=== PATIENT | male | born 1950 | race Caucasian/White ===

== ENCOUNTER → 2016-12-24 | Outpatient (CLI) | payer OTHER ==
[~2016-12-24] MED LIST: ASPEC325 PO; ATV5 PO; DICLOFENAC PO; LISI-461 PO; MELO7.5T5 PO; MULT-506 PO
[2016-12-24 14:18] LABS: ALT/SGPT 110 U/L (12-78); AST/SGOT 47 U/L (15-37); BLOOD UREA NITROGEN 30 mg/dl (7-18); BUN/CREATININE RATIO 22.8 (10-20); CALCIUM 8.9 mg/dl (8.5-10.1); CARBON DIOXIDE 27 mmol/L (21-32); CHLORIDE 112 mmol/L (98-107); GLUCOSE 91 mg/dl (70-99); POTASSIUM 5.3 mmol/L (3.5-5.1); SODIUM 142 mmol/L (136-145)
[2016-12-24 14:29] LABS: ALKALINE PHOSPHATASE 66 U/L (45-117); CHOLESTEROL 205 mg/dl (0-200); CHOLESTEROL/HDL RATIO 4.6; HDL CHOLESTEROL 45 mg/dl; LDL CHOLESTEROL CALCULATED 146 mg/dl; PROSTATE SPECIFIC ANTIGEN 0.395 ng/ml (0.000-4.000); TRIGLYCERIDES 72 mg/dl (0-150); VERY LOW DENSITY LIPOPROT CALC 14 mg/dl
[2016-12-24 14:48] LABS: BASO % 0.4 %; BASO ABS # 0.02 K/uL (0-0.2); COMPLETE YES; EOS % 6.6 %; HEMATOCRIT 41.9 % (42-52); IG% 0.2 %; LYMPH % 34.5 %; LYMPH ABS # 1.83 K/uL (1.2-3.4); MEAN CELL VOLUME 94.6 fL (80-100); MEAN CORPUSCULAR HEMOGLOBIN 31.8 pg (25-34); MEAN CORPUSCULAR HGB CONC 33.7 g/dl (32-36); MONO % 8.3 %; PLATELET COUNT 117 K/uL (130-400); PLT ESTIMATE DECREASED; RED BLOOD COUNT 4.43 M/uL (4.7-6.1); WHITE BLOOD COUNT 5.31 K/uL (4.8-10.8)
--- NOTE | 2017-01-08 12:06 | CODING QUERY MEDICAL NECESSITY ---
CQSUPPORTING DIAGNOSIS NEEDED A supporting diagnosis is required for the test/procedure performed on this patient in order for us to be reimbursed by the patient's insurance. Please provide a supporting diagnosis for the following test/procedure listed below next to the test name along with your signature. *If there is no additional diagnosis for this patient that would support the following test/procedure please document that below next to the test/procedure. Test(s)/Procedure(s) that require a supporting diagnosis: DOS 12/24/16 PROSTATE SPECIFIC ANTIGEN THYROID TEST LIPID TEST Provider Signature: Date: Thank you Mitzy Ball [facility] Information Management Once completed, please kindly fax back to [phone] For questions please call [phone]
== END | disposition home or self-care (01) ==
LOC: C.LABBC 09:46
PROVIDERS: ATTEND Internal Medicine
DX: M19.90 Unspecified osteoarthritis, unspecified site (principal); M62.830 Muscle spasm of back; Z12.5 Encounter for screening for malignant neoplasm of prostate; F41.1 Generalized anxiety disorder; E78.5 Hyperlipidemia, unspecified

== ENCOUNTER → 2017-01-02 | Outpatient (CLI) | payer OTHER ==
--- NOTE | 2017-01-02 08:23 | DIAGNOSTIC IMAGING REPORT ---
ABDOMINAL ULTRASOUND, RIGHT UPPER QUADRANT HISTORY: Elevated liver function tests. COMPARISON: None. FINDINGS: Increased hepatic echogenicity is consistent with fatty infiltration. An area sparing within the gallbladder fossa is noted. There is a 5 mm left hepatic lobe cyst. There is no biliary ductal dilatation. The common bile duct measures 4 mm in caliber. The gallbladder is normal. No gallstones are identified. The pancreas is largely obscured by overlying bowel gas. There is no right hydronephrosis. IMPRESSION: 1. Fatty infiltration of the liver. 2. No gallstones or biliary ductal dilatation. 3. Largely obscured pancreas. Electronically signed by: Isrrael Almodovar M.D. 01/02/2017 8:22 AM Dictated Date/Time: 01/02/2017 8:20 AM
[2017-01-02 11:09] LABS: BASO % 0.4 %; BASO ABS # 0.02 K/uL (0-0.2); COMPLETE YES; EOS % 6.3 %; HEMATOCRIT 43.3 % (42-52); IG% 0.2 %; LYMPH % 28.9 %; LYMPH ABS # 1.46 K/uL (1.2-3.4); MEAN CELL VOLUME 94.3 fL (80-100); MEAN CORPUSCULAR HEMOGLOBIN 31.8 pg (25-34); MEAN CORPUSCULAR HGB CONC 33.7 g/dl (32-36); MEAN PLATELET VOLUME 11.6 fL (7.4-10.4); MONO % 10.3 %; NEUT % 53.9 %; PLATELET COUNT 113 K/uL (130-400); RED BLOOD COUNT 4.59 M/uL (4.7-6.1); WHITE BLOOD COUNT 5.05 K/uL (4.8-10.8)
[2017-01-02 11:42] LABS: ALT/SGPT 138 U/L (12-78); AST/SGOT 48 U/L (15-37); BLOOD UREA NITROGEN 26 mg/dl (7-18); BUN/CREATININE RATIO 20.3 (10-20); CALCIUM 8.6 mg/dl (8.5-10.1); CARBON DIOXIDE 26 mmol/L (21-32); CHLORIDE 108 mmol/L (98-107); GLUCOSE 108 mg/dl (70-99); POTASSIUM 5.5 mmol/L (3.5-5.1); SODIUM 137 mmol/L (136-145)
[2017-01-02 11:46] LABS: ALKALINE PHOSPHATASE 69 U/L (45-117); FERRITIN 77.4 ng/ml (8.0-388.0)
== END | disposition home or self-care (01) ==
LOC: C.ULTRBC 12-28 09:46
PROVIDERS: ATTEND Physician Assistant
DX: R94.5 Abnormal results of liver function studies (principal); K76.0 Fatty (change of) liver, not elsewhere classified

== ENCOUNTER → 2017-03-21 | Outpatient (CLI) | payer OTHER ==
[2017-03-21 10:57] LABS: BASO % 0.3 %; BASO ABS # 0.02 K/uL (0-0.2); COMPLETE YES; EOS % 4.2 %; HEMATOCRIT 42.5 % (42-52); IG% 0.2 %; LYMPH % 27.3 %; LYMPH ABS # 1.63 K/uL (1.2-3.4); MEAN CORPUSCULAR HEMOGLOBIN 31.6 pg (25-34); MEAN CORPUSCULAR HGB CONC 33.6 g/dl (32-36); MEAN PLATELET VOLUME 10.8 fL (7.4-10.4); MONO % 8.6 %; NEUT % 59.4 %; PLATELET COUNT 146 K/uL (130-400); RED BLOOD COUNT 4.52 M/uL (4.7-6.1); WHITE BLOOD COUNT 5.96 K/uL (4.8-10.8)
[2017-03-21 14:25] LABS: ALT/SGPT 67 U/L (12-78); AST/SGOT 46 U/L (15-37); BLOOD UREA NITROGEN 22 mg/dl (7-18); BUN/CREATININE RATIO 20.4 (10-20); CALCIUM 8.9 mg/dl (8.5-10.1); CARBON DIOXIDE 27 mmol/L (21-32); CHLORIDE 104 mmol/L (98-107); CHOLESTEROL 144 mg/dl (0-200); CREATININE 1.09 mg/dl (0.60-1.40); GLUCOSE 108 mg/dl (70-99); POTASSIUM 4.6 mmol/L (3.5-5.1); SODIUM 139 mmol/L (136-145); TRIGLYCERIDES 81 mg/dl (0-150); VERY LOW DENSITY LIPOPROT CALC 16 mg/dl
[2017-03-21 14:28] LABS: ALKALINE PHOSPHATASE 68 U/L (45-117); CHOLESTEROL/HDL RATIO 2.4; HDL CHOLESTEROL 59 mg/dl; LDL CHOLESTEROL CALCULATED 69 mg/dl
== END | disposition home or self-care (01) ==
LOC: C.LABBC 09:21
PROVIDERS: ATTEND Internal Medicine
DX: I10 Essential (primary) hypertension (principal); G47.33 Obstructive sleep apnea (adult) (pediatric); D69.6 Thrombocytopenia, unspecified; R79.89 Other specified abnormal findings of blood chemistry; E78.5 Hyperlipidemia, unspecified; K76.0 Fatty (change of) liver, not elsewhere classified

== ENCOUNTER 2017-07-16 04:58 | Emergency (ER) | payer OTHER ==
[~2017-07-16] VITALS: Ht 165.1 cm; Wt 111.8 kg
[2017-07-16 05:01] VITALS: TEMP 36.7; Ht 165.1 cm; Wt 111.8 kg
--- NOTE | 2017-07-16 05:33 | EMERGENCY ROOM VISIT NOTE ---
History Report prepared by [place]: Gena Durham Under the Supervision of: Dr. Brandi Zambrano D.O. First contact with patient: 05:06 Chief Complaint: SORETHROAT Stated Complaint: SORE THROAT History of Present Illness The patient is a 66 year old male who presents to the Emergency Room with complaints of a constant sore throat beginning 2 days ago. The patient states that he has been coughing up green sputum and has been congested the last 2 days. He states that he tried salt water and Mucinex, but that this did not alleviate his symptoms. He denies coughing up blood and difficulty swallowing. The patient also denies fevers, chills, headaches, nausea, vomiting, and diarrhea. He reports a history of a tonsillectomy. He states that he is traveling to [place] today. Source of History: patient Onset: 2 days ago Position: throat Quality: other (sore throat) Associated Symptoms: + cough, No fevers, No chills, No headache, No nausea, No vomiting, No diarrhea Review of Systems See HPI for pertinent positives & negatives. A total of 10 systems reviewed and were otherwise negative. Past Medical & Surgical Medical Problems: (1) Hypertension (2) Right Hip DJD Surgical Problems: (1) History of hip replacement (2) History of knee replacement (3) History of tonsillectomy Family History No pertinent family history Social History Smoking Status: Never Smoker Alcohol Use: occasionally Marital Status: Housing Status: lives alone Current/Historical Medications Scheduled Aspirin (Aspirin), 325 MG PO BID Azithromycin (Zithromax), 250 MG PO DAILY Lisinopril (Zestril), 10 MG PO QAM Lorazepam (Ativan *), 0.5 MG PO Q6HR PRN Multivitamin (Multivitamin), 1 TAB PO QAM Scheduled PRN Meloxicam (Mobic), 15 MG PO DAILY PRN for RN [Diclofenac], 1 TAB PO BID PRN for RN Allergies Coded Allergies: No Known Allergies (Unverified , 11/01/15) Physical Exam Vital Signs Date Time Temp Pulse Resp B/P (MAP) Pulse Ox O2 Delivery O2 Flow Rate FiO2 07/16/17 06:12 80 18 162/97 98 Room Air 07/16/17 05:09 96 Room Air 07/16/17 05:01 36.7 79 18 188/105 96 Room Air Physical Exam HEENT: Head - normocephalic and atraumatic Pupils are equal, round, and reactive to light. Extraocular eye muscles are intact. Scleral injection in the left eye greater than the right. Nose - moist nasal mucosa without discharge. Mouth - moist buccal mucosa. Oropharynx is nonerythematous and there is no tonsillar exudate or edema noted. Hoarse voice. Neck: Supple; no JVD, nuchal rigidity, cervical lymphadenopathy. Heart: Regular rate and rhythm. There is a normal S1 and S2 with no murmurs, clicks, or gallops appreciated. Lungs: Clear to auscultation bilaterally with no wheezes, rales, or rhonchi. Abdomen: Soft, completely nontender, nondistended, with good bowel sounds. There are no palpable pulsatile masses or hepatosplenomegaly. There is no guarding, rigidity, or rebound noted. Extremities: No evidence of cyanosis, clubbing, or edema. There are easily palpable peripheral pulses. Skin: warm and dry with good turgor and no rashes. Medical Decision & Procedures ER Provider Diagnostic Interpretation: Radiology results as stated below per my review. Chest X-Ray: Borderline cardiomegaly with peribronchiolar cuffing. Medications Administered Medications (Trade) Dose Ordered Sig/Yasmine Route Start Time Stop Time Status Last Admin Dose Admin Azithromycin (Zithromax Tab) 500 mg NOW STAT PO 07/16/17 05:46 07/16/17 05:49 DC 07/16/17 06:02 500 MG Ketorolac Tromethamine (Toradol Inj) 60 mg NOW STAT IM 07/16/17 06:06 07/16/17 06:07 DC 07/16/17 06:08 60 MG Procedure Medication Zithromax Tab 500 mg PO Toradol Inj 60 mg IM ED Course 0515: The patient was evaluated by the medical student. 0522: Past medical records reviewed. The patient was evaluated in room A10. A complete history and physical exam was performed. The patient had a chest x- ray as described above. 0546: Ordered Zithromax Tab 500 mg PO. 0555: Upon reevaluation, the patient is resting. I discussed findings and results with him. He verbalized agreement of the treatment plan. He was discharged home. 0606: Ordered Toradol Inj 60 mg IM. Medical Decision The patient is a 66 year old male who presents to the ED with a sore throat. Differential diagnosis includes conjunctivitis, viral illness, URI, pneumonia, and bronchitis. This is a 66-year-old male patient has had a 2 day history of a hoarse voice, upper respiratory congestion, and a significant cough productive of green sputum. The patient denies any specific shortness of breath but states that he feels miserable after coughing up all this mucus. Chest x-ray showed some peribronchial cuffing but no specific consolidation. The patient was given some Toradol for the sore throat. He was given a dose of Zithromax here in the emergency department and will take an additional 4 days. I have asked the patient to follow-up for recheck with his PCP if symptoms are not improving. He was told to go to the closest emergency department if he had any worsening symptoms. The patient is planning to travel to [place] for the [facility]. Medication Reconcilliation Current Medication List: was personally reviewed by me Blood Pressure Screening Patient's blood pressure: Elevated blood pressure Blood pressure disposition: Elevated BP felt to be situational Impression Primary Impression: Bronchitis Additional Impression: Laryngitis Scribe Attestation The scribe's documentation has been prepared under my direction and personally reviewed by me in its entirety. I confirm that the note above accurately reflects all work, treatment, procedures, and medical decision making performed by me. Departure Information Dispostion Home / Self-Care Prescriptions Azithromycin (ZITHROMAX) 250 Mg Tab 250 MG PO DAILY, #4 TAB Prov: Brandi Zambrano D.O. 07/16/17 Referrals Shankar Norton M.D. (PCP) Forms HOME CARE DOCUMENTATION FORM, IMPORTANT VISIT INFORMATION Patient Instructions Bronchitis Acute, ED Laryngitis, [facility] Additional Instructions Rest. Keep yourself well-hydrated. Take ibuprofen for pain. Zithromax daily for next 4 days. (Start dose at home tomorrow.) Go to the closest ER for any worsening symptoms. Problem Qualifiers
[2017-07-16] MEDS ORDERED: AZITHROMYCIN 250 MG TAB PO STA (05:46)
[2017-07-16] MEDS ORDERED: AZIT250T PO (05:52)
[2017-07-16] MEDS ORDERED: KETOROLAC TROMETHAMINE 60 MG/2 ML VIAL IM STA (06:06)
[2017-07-16 06:12] VITALS: BP 162/97; PULSE 80; O2SAT 98
--- NOTE | 2017-07-16 06:35 | DIAGNOSTIC IMAGING REPORT ---
CHEST 2 VIEWS ROUTINE HISTORY: 66 years-old Male eval for pneumonia acute cough COMPARISON: Chest radiographs 09/05/2015 TECHNIQUE: PA and lateral views of the chest FINDINGS: Cardiac silhouette is mildly enlarged, unchanged. There is no pneumothorax, pleural effusion, focal airspace consolidation or overt pulmonary edema. Degenerative changes are noted within the shoulders and spine. The lateral right hemithorax is excluded from the [id number]. IMPRESSION: No acute process. The above report was generated using voice recognition software. It may contain grammatical, syntax or spelling errors. Electronically signed by: Alan Vilchis M.D. 07/16/2017 6:33 AM Dictated Date/Time: 07/16/2017 6:32 AM
== END 2017-07-16 06:13 | disposition home or self-care (01) ==
LOC: C.EDB 04:59 → C.EDA 06:13
DX: J40 Bronchitis, not specified as acute or chronic (principal); J04.0 Acute laryngitis; I10 Essential (primary) hypertension; Z79.82 Long term (current) use of aspirin